=== PATIENT | male | born 1995 | race African-American/Black ===

== ENCOUNTER 2020-08-15 04:59 | Emergency (ER) | payer MEDICAID ==
[~2020-08-15] VITALS: Ht 182.9 cm; Wt 220.0 kg
[2020-08-15 05:03] VITALS: BP 156/98
[2020-08-15] MEDS ORDERED: LIDOCAINE HCL 1% 20ML VIAL (Pyxis) INJ INFIL ONE (06:15)
== END 2020-08-15 05:22 | disposition left against medical advice (07) ==
LOC: ER 04:59
DX: Z53.21 Procedure and treatment not carried out due to patient leaving prior to being seen by health care provider (principal)